=== PATIENT | male | born 1960 | race Caucasian/White ===

== ENCOUNTER 2017-08-09 22:07 | Emergency (ER) | payer OTHER ==
[2017-08-09 22:21] VITALS: BP 134/86
--- NOTE | 2017-08-09 23:11 | ER Document Report ---
ED Skin Rash/Insect Bite/Abscs - General Chief Complaint: Insect Bite Stated Complaint: POSSIBLE SPIDER BITE, SWOLLEN HAND Time Seen by Provider: 08/09/17 22:52 Mode of Arrival: Ambulatory Information source: Patient Notes: 56-year-old male presents to ED for complaint of right hand swelling after he was bit by an insect yesterday about 6:00. He states that swelled some last night but then again today it started swelling again I explained to him the secondary reaction to insect bites is sometimes the next day. He states he had 2 little pustules yesterday which he popped with a needle I explained to him that this is not a good practice he should leave these alone. He does not have any signs or symptoms of infection at this time. TRAVEL OUTSIDE OF THE [place] IN LAST 30 DAYS: No - HPI Patient complains to provider of: Insect bite Onset: Yesterday Onset/Duration: Gradual Quality of pain: Pressure Severity: Mild Pain Level: 1 Skin Character: Tenderness, Other - Red swelling right hand with 2 little open areas where he popped the pustules from the insect bites. Quality of rash: Itchy, Painful Identify cause: Yes - Insect bite yesterday Exacerbated by: Denies Relieved by: Denies Similar symptoms previously: Yes Recently seen / treated by doctor: No Past Medical History - General Information source: Patient - Social History Smoking Status: Former Smoker Cigarette use (# per day): No Chew tobacco use (# tins/day): No Smoking Education Provided: No Frequency of alcohol use: Occasional Drug Abuse: None Occupation: Retired Lives with: Family Family History: Arthritis, CAD, Hyperlipidemia, Hypertension, Malignancy, Thyroid Disfunction. denies: COPD, CVA, DM, Other Patient has suicidal ideation: No Patient has homicidal ideation: No - Medical History Medical History: Other - Patient states he had an allergic reaction in the past it caused him hives diarrhea shortness of breath and had a EpiPen which he states so he threw it away. - Past Medical History Cardiac Medical History: Reports: Hx Hypercholesterolemia Pulmonary Medical History: Reports: Hx Sleep Apnea EENT Medical History: Reports: None Neurological Medical History: Reports: None Endocrine Medical History: Reports: None Renal/ Medical History: Reports: None Malignancy Medical History: Reports None GI Medical History: Reports: Hx Gastroesophageal Reflux Disease, Hx Colonoscopy , Hx Endoscopy Musculoskeltal Medical History: Reports Hx Musculoskeletal Deformity - Ganglion cyst, Reports Hx Musculoskeletal Trauma Skin Medical History: Reports None Psychiatric Medical History: Reports: None Traumatic Medical History: Reports: Hx Fractures - Fractured wrist Infectious Medical History: Reports: None Past Surgical History: Reports: Hx Orthopedic Surgery - Ganglion cyst removal Review of Systems - Review of Systems Constitutional: No symptoms reported EENT: No symptoms reported Cardiovascular: No symptoms reported Respiratory: No symptoms reported Gastrointestinal: No symptoms reported Genitourinary: No symptoms reported Male Genitourinary: No symptoms reported Musculoskeletal: No symptoms reported Skin: Other - Insect bite to right hand with redness and swelling to small open areas where he had pustules from the bites that he popped with a needle no signs and symptoms of infection Hematologic/Lymphatic: No symptoms reported Neurological/Psychological: No symptoms reported Physical Exam - Vital signs Vitals: Temp Pulse Resp BP Pulse Ox 97.8 F 69 18 134/86 H 96 08/09/17 22:16 08/09/17 22:16 08/09/17 22:16 08/09/17 22:16 08/09/17 22:16 Interpretation: Normal - General General appearance: Appears well, Alert - HEENT Head: Normocephalic, Atraumatic Eyes: Normal Pupils: PERRL - Respiratory Respiratory status: No respiratory distress Chest status: Nontender Breath sounds: Normal Chest palpation: Normal - Cardiovascular Rhythm: Regular Heart sounds: Normal auscultation Murmur: No - Abdominal Inspection: Normal Distension: No distension Bowel sounds: Normal Tenderness: Nontender Organomegaly: No organomegaly - Back Back: Normal, Nontender - Extremities General upper extremity: Normal inspection, Nontender, Normal color, Normal ROM , Normal temperature General lower extremity: Normal inspection, Nontender, Normal color, Normal ROM , Normal temperature, Normal weight bearing. No: Evelio's sign - Neurological Neuro grossly intact: Yes Cognition: Normal Orientation: AAOx4 [place] Coma Scale Eye Opening: Spontaneous [place] Coma Scale Verbal: Oriented Brandon Coma Scale Motor: Obeys Commands [place] Coma Scale Total: 15 Speech: Normal Motor strength normal: LUE, RUE, LLE, RLE Sensory: Normal - Psychological Associated symptoms: Normal affect, Normal mood - Skin Skin Temperature: Warm Skin Moisture: Dry Skin Color: Normal Location of irregularity: Extremities - Insect bite to right hand with redness and swelling to small open areas where he had pustules from the bites that he popped with a needle no signs and symptoms of infection Character of irregularity: Erythematous, Urticarial Irregularity with: Swelling, Tenderness Course - Re-evaluation Re-evalutation: 08/09/17 23:17 Patient was given prescriptions for the EpiPen because he states he has had a from formal allergic reaction and no longer has an EpiPen at home because it was an 1. He was also given a prescription for Keflex to use if he develops symptoms of infection due to him pop in the insect bites with needle. Patient was given instructions on when or if to fill the prescription but not to fill it at this time. Patient was also given instructions to use of the nodule ibuprofen and Pepcid for his itching and swelling to his hand. Patient to follow-up with his primary doctor. - Vital Signs Vital signs: Temp Pulse Resp BP Pulse Ox 97.8 F 69 18 134/86 H 96 08/09/17 22:16 08/09/17 22:16 08/09/17 22:16 08/09/17 22:16 08/09/17 22:16 Discharge - Discharge Clinical Impression: Insect bite of right hand with local reaction Qualifiers: Encounter type: initial encounter Qualified Code(s): S60.561A - Insect bite ( nonvenomous) of right hand, initial encounter; W57.XXXA - Bitten or stung by nonvenomous insect and other nonvenomous arthropods, initial encounter; W57.XXXA - Bitten or stung by nonvenomous insect and other nonvenomous arthropods, initial encounter Condition: Stable Disposition: HOME, SELF-CARE Instructions: Family Physicians / Practices Additional Instructions: Insect Bites You have been bitten by an insect. These bites can cause two types of swelling: an initial swelling due to insect saliva or injected poison, and a late reaction due to your body's allergic reaction. This initial local reaction may be uncomfortable but is not dangerous. Often there's an itchy "hive" at the bite location. This is treated with antihistamines, cold compresses, and resting the affected body part. The later reaction often develops about the second day. The entire area becomes very swollen, red, itchy, and tender. This is an allergic reaction. Your body is attacking the leftover insect saliva or venom. This type of allergy is unpleasant, but not dangerous. We treat this swelling with cortisone -type medicine. Sometimes we use antibiotics if we're worried about infection. Antihistamines help with the itch. If you develop a fever, chills, a red streak, or swollen glands in the area of the bite, infection may be starting. Return at once. EPINEPHRINE: An injection of epinephrine (also called adrenalin) is used to treat allergic reactions, asthma, and some other medical conditions. It is a stimulant medication that consticts blood vessels, relaxes smooth muscles such as in the bronchioles of the lung, elevates blood pressure, and increases heart rate. It can temporarily make you feel very nervous and shakey, but it's affects last only a short time, about 15 to 30 minutes at most. ACID-SUPPRESSING MEDICATION: You have a prescription for medicine which reduces the stomach's secretion of acid. Examples include Zantac, Tagament, and Pepcid. These drugs are often used to allow healing of ulcers or esophagitis. They may be needed to prevent recurrence of ulcers in some patients, or to prevent damage from acid reflux in the esophagus. Take all medication as prescribed, even after the pain is gone. Regular antacids may be added as needed if you have symptoms while taking this medicine. These medications sometimes are prescribed for allergic reactions because they have anti-histaminic effects and relieve the rash and itching of the reaction. There are usually no side effects from this medication. But, in rare cases and particularly in the elderly, serious problems can occur. Contact your doctor if there is fever, rash, hallucinations, confusion, or unusual bruising. Contact your doctor at once if you develop lightheadedness, black or bloody stool, or bloody vomitus. ANTIHISTAMINES: An antihistamine has been given and/or prescribed to control your symptoms. Antihistamines are used for many reasons, including itching, watering eyes, runny nose, allergic swelling, hives, and insect stings. Antihistamines may cause drowsiness, especially with the first dose. Do not operate machinery or drive while under the effects of the medication. Other common side effects include dry mouth and eyes. In older persons, antihistamines can occasionally cause urinary retention, constipation, and trouble focusing the eyes. Do not combine the medication with alcohol, or with any other medication without talking to your doctor. USE OF DIPHENHYDRAMINE: The use of diphenhydramine (Benadryl) has been recommended to control allergic symptoms. The 25 mg strength is available over- the-counter, as well as the elixir. This antihistamine is used for many symptoms. It's useful for itching, watering eyes and nose, allergic swelling, hives, and insect stings. The medication can be repeated four times daily. Age Elixir (12.5 mg/tsp) 25 mg pill 2-3 yr 1/2 tsp 4-8 yr 1 tsp 9-14 yr 2 tsp one tab adult 1-2 tabs Antihistamines may cause drowsiness, especially with the first dose. Do not operate machinery or drive while under the effects of the medication. Do not combine the medication with alcohol, or with any other medication without talking to your doctor. Cephalexin Do not fill your prescription for keflex unless you develop signs and symptom of infection we discussed. The antibiotic you've been prescribed is a member of the cephalosporin class. This type of antibiotic covers a wide variety of infections, including those of the skin, lungs, and urinary tract. It's useful for staph infections. This antibiotic is slightly similar to the penicillin family. In rare cases , a person who is allergic to penicillin will also be allergic to this medication. If you have had a severe allergic reaction to penicillin, and have not taken this antibiotic since that time, notify your doctor. Antibiotics which cover many germs ("broad spectrum" antibiotics) are more likely to cause diarrhea or "yeast" infections. Women prone to vaginal yeast problems may suffer an attack after taking this antibiotic. In infants, oral thrush (white spots "stuck" on the cheek) or yeast diaper rash may result. See your doctor if these problems occur. Call at once if you develop itching, hives , shortness of breath, or lightheadedness. FOLLOW-UP CARE: If you have been referred to a physician for follow-up care, call the physician s office for an appointment as you were instructed or within the next two days. If you experience worsening or a significant change in your symptoms, notify the physician immediately or return to the Emergency Department at any time for re-evaluation. Prescriptions: Cephalexin Monohydrate [Keflex 500 mg Capsule] 500 mg PO Q6H 5 Days capsule Epinephrine [Epipen] 0.3 mg IJ ASDIR PRN #1 auto.injct PRN Reason: Forms: Elevated Blood Pressure
== END 2017-08-09 23:22 | disposition home or self-care (01) ==
LOC: ER 22:07
DX: S60.561A Insect bite (nonvenomous) of right hand, initial encounter (principal); M79.89 Other specified soft tissue disorders; W57.XXXA Bitten or stung by nonvenomous insect and other nonvenomous arthropods, initial encounter; Y92.810 Car as the place of occurrence of the external cause; Z87.891 Personal history of nicotine dependence
CPT/HCPCS: 99281

== ENCOUNTER 2019-04-17 18:22 | Emergency (ER) | payer OTHER ==
[2019-04-17] MEDS ORDERED: EPINEPHRINE INJ/PF 1 MG/1 ML AMPULE ONE ×3 (18:28→19:14)
[2019-04-17] MEDS ORDERED: NORMAL SALINE 1000 ML 1,000 ML IV ONE (18:37)
[2019-04-17] MEDS ORDERED: DEXAMETHASONE SOD PHOS INJ 10 MG/1 ML VIAL IV ONE (18:37)
--- NOTE | 2019-04-17 18:37 | ER Document Report ---
ED General - General Chief Complaint: Allergic Reaction Stated Complaint: POSSIBLE ALLERGIC REACTION Time Seen by Provider: 04/17/19 18:31 Primary Care Provider: ZOHRA IL MD [Primary Care Provider] - Follow up as needed Notes: Patient is a 58-year-old male with a past medical history of allergic reactions to insect bites who does present today with diffuse urticaria. States that he was stung by a wasp roughly 1 hour prior to presentation. Notes that he has some mild tightness of his chest but denies any distinct difficulty breathing. Notes diffuse urticarial lesions over the entirety of his chest, abdomen, back, upper extreme knees and bilateral lower extremities. He notes that these have a severe, constant, itching discomfort. He took Benadryl prior to coming to the hospital today with minimal improvement. States this is very similar to when he has had allergic reaction in the past. He denies any syncope, vomiting, diarrhea or abdominal cramping. He did not self administer his EpiPen that he has at home TRAVEL OUTSIDE OF THE [place] IN LAST 30 DAYS: No Past Medical History - General Information source: Patient - Social History Smoking Status: Never Smoker Frequency of alcohol use: None Drug Abuse: None Lives with: Spouse/Significant other Family History: Arthritis, CAD, Hyperlipidemia, Hypertension, Malignancy, Thyroid Disfunction. denies: COPD, CVA, DM, Other - Past Medical History Cardiac Medical History: Reports: Hx Hypercholesterolemia Pulmonary Medical History: Reports: Hx Sleep Apnea Renal/ Medical History: Denies: Hx Peritoneal Dialysis GI Medical History: Reports: Hx Gastroesophageal Reflux Disease, Hx Colonoscopy, Hx Endoscopy Musculoskeletal Medical History: Reports Hx Musculoskeletal Deformity - Ganglion cyst, Reports Hx Musculoskeletal Trauma Traumatic Medical History: Reports: Hx Fractures - Fractured wrist Past Surgical History: Reports: Hx Orthopedic Surgery - Ganglion cyst removal Review of Systems - Review of Systems Notes: Constitutional: Negative for fever. HENT: Negative for sore throat. Eyes: Negative for visual changes. Cardiovascular: Negative for chest pain. Respiratory: Positive for feeling of respiratory tightness GI: Negative for vomiting and diarrhea Genitourinary: Negative for dysuria. Musculoskeletal: Negative for back pain. Skin: Negative for rash. Neurological: Negative for headaches, weakness or numbness. 10 point ROS negative except as marked above and in HPI. Physical Exam - Vital signs Vitals: Resp BP Pulse Ox 13 114/57 L 94 04/17/19 19:00 04/17/19 19:00 04/17/19 19:00 Interpretation: Normal Notes: PHYSICAL EXAMINATION: GENERAL: Appears moderately uncomfortable but in no acute distress HEAD: Atraumatic, normocephalic. EYES: Pupils equal round and reactive to light, extraocular movements intact, sclera anicteric, conjunctiva are normal. ENT: nares patent, oropharynx clear without exudates. Moist mucous membranes. NECK: Normal range of motion, supple without lymphadenopathy LUNGS: No wheezes or rales. No stridor. HEART: Regular rate and rhythm without murmurs ABDOMEN: Soft, nontender, normoactive bowel sounds. No guarding, no rebound. No masses appreciated. EXTREMITIES: Normal range of motion, no pitting or edema. No cyanosis. NEUROLOGICAL: No focal neurological deficits. Moves all extremities spontaneously and on command. PSYCH: Anxious but appropriate to situation SKIN: Warm, Dry, normal turgor, diffuse urticarial lesions over the chest, back, abdomen, bilateral upper extremities and bilateral lower extremities Course - Re-evaluation Re-evalutation: 04/17/19 18:30 Patient presents with diffuse urticaria, mild tightness of his breathing although has no wheezing, stridor or diminished breath sounds on lung examination. He is saturating 92% on room air on monitor. He has no additional system involvement other than urticaria however is mildly hypoxemic at 92%.. Have administered 0.5 mg of intramuscular epinephrine. An IV has been established. He has been placed on monitor. No labs or imaging indicated. Patient is in guarded condition, will be reassessed at regular intervals. 04/17/19 18:36 Symptoms are effectively unchanged at this time. An additional 0.5 mg of intramuscular epinephrine will be administered. 04/17/19 20:58 Patient has been reassessed on multiple occasions and after a total of 3 doses of 0.5 mg of intramuscular epinephrine has had resolution of hives, normalization of his oxygenation. Patient was monitored for 1 hour post last dose of epinephrine without any recurrence of symptoms. Has been extensively instructed to itself administer epinephrine immediately if his symptoms are to recur and has been provided a prescription for an epinephrine pen. He does have an EpiPen available at home. At this time will discharge with return precautions and follow-up recommendations. Verbal discharge instructions given a the bedside and opportunity for questions given. Medication warnings reviewed. Patient is in agreement with this plan and has verbalized understanding of return precautions and the need for primary care follow-up in the next 24-72 hours. - Vital Signs Vital signs: Temp Pulse Resp BP Pulse Ox 13 126/58 H 96 04/17/19 20:00 04/17/19 20:00 04/17/19 20:00 Critical Care Note - Critical Care Note Total time excluding time spent on procedures (mins): 35 Comments: Critical care time spent obtaining history from patient or surrogate, development of treatment plan with patient or surrogate, evaluation of patient's response to treatment, examination of patient, ordering and performing treatments and interventions, re-evaluation of patient's condition. Discharge - Discharge Clinical Impression: Hives Anaphylactic reaction Qualifiers: Encounter type: initial encounter Qualified Code(s): T78.2XXA - Anaphylactic shock, unspecified, initial encounter Condition: Good Disposition: HOME, SELF-CARE Additional Instructions: IF YOU DEVELOP DIFFICULTY BREATHING, RETURN OF HIVES, VOMITING, LIGHTHEADEDNESS, GIVE YOURSELF THE EPINEPHRINE SHOT IMMEDIATELY AND CALL 911. NEVER HESITATE TO GIVE YOURSELF THE EPINEPHRINE THIS CAN SAVE YOUR LIFE IF YOU ARE HAVE A SERIOUS ALLERGIC REACTION. Please also follow-up with your primary care doctor for consideration of allergy testing. Prescriptions: Epinephrine [Epipen 2-Dane] 0.3 mg IM ONCE PRN #1 packet PRN Reason: Referrals: ZOHRA LI MD [Primary Care Provider] - Follow up as needed
[2019-04-17] MEDS ORDERED: FAMOTIDINE INJ/PF 20 MG/2 ML SDV IV ONE (18:38)
[2019-04-17 21:23] VITALS: BP 125/72
== END 2019-04-17 21:24 | disposition home or self-care (01) ==
LOC: ER 18:22
DX: L50.0 Allergic urticaria (principal); T78.2XXA Anaphylactic shock, unspecified, initial encounter; R06.00 Dyspnea, unspecified; X58.XXXA Exposure to other specified factors, initial encounter; E78.00 Pure hypercholesterolemia, unspecified
CPT/HCPCS: 99283; J0171; J7030; S0028; J1100

== ENCOUNTER → 2019-12-21 | Outpatient (CLI) | payer OTHER | LOC: OD 11:10 | PROVIDERS: ATTEND Otolaryngology | DX: J30.9 Allergic rhinitis, unspecified (principal) | CPT/HCPCS: 36415; 82785; 86003 ==